=== PATIENT | male | born 1955 | race American Indian/Alaskan Native ===

== ENCOUNTER 2018-05-04 13:45 | Emergency (ER) | payer OTHER, BC ==
[2018-05-04] MEDS ORDERED: MOTRIN PO ONE (17:22)
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
--- NOTE | 2018-05-04 19:23 | XRay Report ---
FINAL REPORT PROCEDURE: XR SPINE CERVICAL 3+ VIEW TECHNIQUE: Cervical spine radiographs, AP, lateral, swimmer's and open-mouth odontoid views. CPT 21385 HISTORY: Neck pain. COMPARISON: No prior studies are available for comparison. FINDINGS: Prevertebral soft tissues: Normal . Alignment: Slight asymmetry of the lateral masses. Vertebral body heights/Disk spaces: Multilevel osteophytes and disc narrowing. Fracture(s): None . Facets: Normal . Bone mineralization: Normal . IMPRESSION: Multilevel degenerative changes of the spine. Slight asymmetry of the lateral masses, likely positional.
[2018-05-04 20:06] VITALS: BP 147/94
== END 2018-05-04 20:07 | disposition home or self-care (01) ==
LOC: ED 13:45
DX: S13.4XXA Sprain of ligaments of cervical spine, initial encounter (principal); V89.2XXA Person injured in unspecified motor-vehicle accident, traffic, initial encounter; Y93.89 Activity, other specified; Y92.89 Other specified places as the place of occurrence of the external cause; Y99.8 Other external cause status
CPT/HCPCS: 72040; 99283